=== PATIENT | female | born 1930 | race Caucasian/White ===

== ENCOUNTER 2021-05-24 12:04 | Emergency (ER) | payer OTHER ==
[~2021-05-24] VITALS: Ht 154.9 cm; Wt 63.5 kg
== END 2021-05-24 16:30 | disposition home or self-care (01) ==
LOC: ER1 12:04
DX: U07.1 COVID-19 (principal); J40 Bronchitis, not specified as acute or chronic; E03.9 Hypothyroidism, unspecified; Z85.828 Personal history of other malignant neoplasm of skin
CPT/HCPCS: 71045; 99283

== ENCOUNTER 2021-06-04 11:20 | Emergency (ER) | payer OTHER ==
[2021-06-04 12:17] LABS: HEMOGLOBIN 13.4 gm/dl (12.3-15.3); RED BLOOD COUNT 4.47 M/UL (4.00-5.10); WHITE BLOOD COUNT 3.7 K/UL (4.5-11.0)
[2021-06-04 12:47] LABS: BUN/CREATININE RATIO 10 (0-10)
[2021-06-04] MEDS ORDERED: PROTONIX40 MG PO (16:06)
[2021-06-04] MEDS ORDERED: MUCINEX600 MG PO (16:06)
== END 2021-06-04 16:22 | disposition home or self-care (01) ==
LOC: ER1 11:20
PROVIDERS: Physician Assistant
DX: U07.1 COVID-19 (principal); J40 Bronchitis, not specified as acute or chronic; K21.9 Gastro-esophageal reflux disease without esophagitis; I10 Essential (primary) hypertension; E78.5 Hyperlipidemia, unspecified; N28.9 Disorder of kidney and ureter, unspecified; E03.9 Hypothyroidism, unspecified; Z90.710 Acquired absence of both cervix and uterus
CPT/HCPCS: 71045; 80053; 82550; 82553; 83690; 83874; 84484; 85025; 93005; 99285

== ENCOUNTER → 2021-07-01 | Outpatient (CLI) | payer OTHER ==
[~2021-07-01] MED LIST: MUCINEX600 MG PO; PROTONIX40 MG PO
== END ==
LOC: US 09:30
DX: K21.9 Gastro-esophageal reflux disease without esophagitis (principal); K44.9 Diaphragmatic hernia without obstruction or gangrene
CPT/HCPCS: 76700